=== PATIENT | female | born 1985 | race African-American/Black ===

== ENCOUNTER → 2016-11-05 | Outpatient (CLI) | payer OTHER ==
[2015-12-08 13:40] VITALS: BP 145/91
[~2016-11-05] MED LIST: TRAM-29 PO
--- NOTE | 2016-11-05 16:00 | EKG ---
[facility] [address] [place] [id number] Test Date: 2016-11-05 Test Time: 15:58:54 Pat Name: BRAD MANCIA Department: Room: Gender: F Patient Admitting Clerk: TRACY : 1985 Requested By: YEVTTE PLUMMER Order Number: [id number] Reading MD: Monica Kim Measurements Intervals Boley Rate: 112 P: 53 MT: 136 QRS: 52 QRSD: 76 T: 21 QT: 338 QTc: 463 Interpretive Statements SINUS TACHYCARDIA LEFT ATRIAL ABNORMALITY ABNORMAL ECG RI6.01 No previous ECG available for comparison Electronically Signed On 11-06-2016 12:38:35 CDT by Monica Kim
== END | disposition home or self-care (01) ==
LOC: EKG 15:39
PROVIDERS: ATTEND Obstetrics & Gynecology
DX: R00.0 Tachycardia, unspecified (principal); R94.31 Abnormal electrocardiogram [ECG] [EKG]
CPT/HCPCS: 93005